=== PATIENT | female | born 1990 | race Two or more races ===

== ENCOUNTER 2021-05-11 12:58 | Emergency (ER) | payer MEDICAID, OTHER ==
[~2021-05-11] VITALS: Ht 165.1 cm; Wt 163.3 kg
[2021-05-11 13:11] VITALS: BP 134/81
== END 2021-05-11 22:17 | disposition left against medical advice (07) ==
LOC: ER 12:58
DX: Z48.00 Encounter for change or removal of nonsurgical wound dressing (principal); Z53.21 Procedure and treatment not carried out due to patient leaving prior to being seen by health care provider